=== PATIENT | female | born 1945 | race Caucasian/White ===

== ENCOUNTER 2016-07-20 11:42 | Outpatient (CLI) | payer MEDICARE ==
[2016-07-20 12:04] LABS: #Basophils 0.1 thou/uL (0.0-0.2); #Eosinphils 0.2 thou/uL (0.0-0.7); #Lymphocytes 1.6 thou/uL (1.20-3.40); #Monocytes 0.6 thou/uL (0.11-0.59); #Neutrophils 5.8 thou/uL (1.40-6.50); %Basophils 0.8 % (0.0-1.0); %Eosinophils 2.3 % (0.0-10.0); %Lymphocytes 19.3 % (21.0-51.0); %Monocytes 6.7 % (0.0-10.0); Hematocrit 30.6 % (36.0-47.0); Mean Platelet Volume 6.1 fL (7.4-10.4); Red Blood Cell (RBC) Count 3.76 mill/uL (4.20-5.40); White Blood Cell (WBC) Count 8.1 thou/uL (4.8-10.8)
[2016-07-20 14:21] LABS: ALT (SGPT) 17 U/L (0-55); AST (SGOT) 20 U/L (5-34); Alkaline Phosphatase 97 U/L (40-150); Bilirubin, Direct 0.1 mg/dL (0.1-0.3); Bilirubin, Total 0.3 mg/dL (0.2-1.2); LDL Cholesterol, Calculated 78 mg/dL; Protein, Total 5.9 g/dL (5.8-8.1)
== END 2016-07-20 11:43 | disposition home or self-care (01) ==
LOC: NAV LAB 11:42
PROVIDERS: ATTEND Dermatology
DX: L40.0 Psoriasis vulgaris (principal)
CPT/HCPCS: 36415; 80061; 80076; 85025

== ENCOUNTER 2016-08-17 10:45 | Outpatient (CLI) | payer MEDICARE ==
[2016-08-17 11:47] LABS: #Basophils 0.1 thou/uL (0.0-0.2); #Eosinphils 0.4 thou/uL (0.0-0.7); #Lymphocytes 1.5 thou/uL (1.20-3.40); #Monocytes 0.5 thou/uL (0.11-0.59); #Neutrophils 4.7 thou/uL (1.40-6.50); %Basophils 1.1 % (0.0-1.0); %Eosinophils 5.4 % (0.0-10.0); %Lymphocytes 21.3 % (21.0-51.0); %Monocytes 7.4 % (0.0-10.0); Hematocrit 29.8 % (36.0-47.0); Mean Platelet Volume 6.4 fL (7.4-10.4); Red Blood Cell (RBC) Count 3.59 mill/uL (4.20-5.40); White Blood Cell (WBC) Count 7.2 thou/uL (4.8-10.8)
[2016-08-17 11:50] LABS: ALT (SGPT) 15 U/L (0-55); AST (SGOT) 19 U/L (5-34); Alkaline Phosphatase 101 U/L (40-150); Bilirubin, Direct 0.2 mg/dL (0.1-0.3); Bilirubin, Total 0.5 mg/dL (0.2-1.2); LDL Cholesterol, Calculated 76 mg/dL; Protein, Total 5.8 g/dL (5.8-8.1)
== END 2016-08-17 10:46 | disposition home or self-care (01) ==
LOC: NAV LAB 10:45
PROVIDERS: ATTEND Dermatology
DX: L40.0 Psoriasis vulgaris (principal); Z79.899 Other long term (current) drug therapy
CPT/HCPCS: 36415; 80061; 80076; 85025

== ENCOUNTER 2016-09-13 08:36 | Outpatient (CLI) | payer MEDICARE ==
[2016-09-13 10:20] LABS: ALT (SGPT) 15 U/L (0-55); AST (SGOT) 19 U/L (5-34); Alkaline Phosphatase 99 U/L (40-150); Bilirubin, Direct 0.2 mg/dL (0.1-0.3); Bilirubin, Total 0.3 mg/dL (0.2-1.2); LDL Cholesterol, Calculated 81 mg/dL; Protein, Total 5.8 g/dL (5.8-8.1)
[2016-09-13 10:33] LABS: #Basophils 0.1 thou/uL (0.0-0.2); #Eosinphils 0.3 thou/uL (0.0-0.7); #Lymphocytes 0.9 thou/uL (1.20-3.40); #Monocytes 0.8 thou/uL (0.11-0.59); #Neutrophils 4.1 thou/uL (1.40-6.50); %Basophils 0.9 % (0.0-1.0); %Eosinophils 5.5 % (0.0-10.0); %Lymphocytes 14.2 % (21.0-51.0); %Monocytes 12.8 % (0.0-10.0); Hematocrit 30.9 % (36.0-47.0); Mean Platelet Volume 5.9 fL (7.4-10.4); Red Blood Cell (RBC) Count 3.68 mill/uL (4.20-5.40); White Blood Cell (WBC) Count 6.2 thou/uL (4.8-10.8)
== END 2016-09-13 08:37 | disposition home or self-care (01) ==
LOC: NAV LAB 08:36
PROVIDERS: ATTEND Dermatology
DX: L40.0 Psoriasis vulgaris (principal); Z79.899 Other long term (current) drug therapy
CPT/HCPCS: 36415; 80061; 80076; 85025

== ENCOUNTER 2016-11-08 07:52 | Outpatient (CLI) | payer MEDICARE ==
[2016-11-08 09:34] LABS: ALT (SGPT) 12 U/L (8-55); AST (SGOT) 17 U/L (5-34); Albumin 3.6 g/dL (3.4-4.8); Alkaline Phosphatase 93 U/L (40-150); Bilirubin, Direct 0.2 mg/dL (0.1-0.3); Bilirubin, Total 0.4 mg/dL (0.2-1.2); Cholesterol 125 mg/dL (< 200 Desired); HDL Cholesterol 42 mg/dL (>60 Neg Risk); LDL Cholesterol, Calculated 72 mg/dL; Protein, Total 5.9 g/dL (5.8-8.1); Triglycerides 53 mg/dL (Less than 150)
[2016-11-08 10:03] LABS: #Basophils 0.1 thou/uL (0.0-0.2); #Eosinphils 0.3 thou/uL (0.0-0.7); #Lymphocytes 1.5 thou/uL (1.20-3.40); #Monocytes 0.5 thou/uL (0.11-0.59); #Neutrophils 4.6 thou/uL (1.40-6.50); %Basophils 0.9 % (0.0-1.0); %Eosinophils 4.5 % (0.0-10.0); %Lymphocytes 20.9 % (21.0-51.0); %Monocytes 6.7 % (0.0-10.0); %Neutrophils 66.9 % (42.0-75.0); Hemoglobin 10.3 g/dL (12.0-16.0); Mean Corpuscular HGB CONC 29.7 g/dL (32.0-36.0); Mean Corpuscular Hemoglobin 24.6 pg (27.0-31.0); Mean Corpuscular Volume 82.8 fl (81.0-99.0); Platelet Count 281 thou/uL (130-400); RBC Distribution Width 17.1 % (11.5-14.5); Red Blood Cell (RBC) Count 4.17 mill/uL (4.20-5.40); White Blood Cell (WBC) Count 6.9 thou/uL (4.8-10.8)
[2016-11-08 10:04] LABS: Anisocytosis SLIGHT = 6-15 cells (100X) (0-5/hpf); Hypochromia SLIGHT = 6-15 cells (100X) (0-5/hpf); MDiff Complete? YES; PLT Morphology Comment Appears Adequate
[2016-11-08 10:36] LABS: Follow-up Chemistry Comp? YES; Follow-up Hematology Comp? YES; Follow-up Result - Chemistry REPORT FAXED; Follow-up Result - Hematology REPORT FAXED
== END 2016-11-08 07:53 | disposition home or self-care (01) ==
LOC: NAV LAB 07:52
PROVIDERS: ATTEND Dermatology
DX: L40.0 Psoriasis vulgaris (principal)
CPT/HCPCS: 80061; 80076; 85025

== ENCOUNTER 2017-02-01 15:48 | Outpatient (CLI) | payer MEDICARE ==
[2017-02-01 16:18] LABS: #Basophils 0.1 thou/uL (0.0-0.2); #Eosinphils 0.2 thou/uL (0.0-0.7); #Lymphocytes 1.2 thou/uL (1.20-3.40); #Monocytes 0.8 thou/uL (0.11-0.59); #Neutrophils 5.4 thou/uL (1.40-6.50); %Basophils 1.7 % (0.0-1.0); %Eosinophils 3.1 % (0.0-10.0); %Lymphocytes 15.9 % (21.0-51.0); %Monocytes 9.7 % (0.0-10.0); %Neutrophils 69.6 % (42.0-75.0); Hemoglobin 10.9 g/dL (12.0-16.0); Mean Corpuscular HGB CONC 30.4 g/dL (32.0-36.0); Mean Corpuscular Hemoglobin 26.6 pg (27.0-31.0); Mean Corpuscular Volume 87.3 fl (81.0-99.0); Platelet Count 225 thou/uL (130-400); RBC Distribution Width 16.3 % (11.5-14.5); Red Blood Cell (RBC) Count 4.12 mill/uL (4.20-5.40); White Blood Cell (WBC) Count 7.8 thou/uL (4.8-10.8)
[2017-02-01 16:55] LABS: ALT (SGPT) 13 U/L (8-55); AST (SGOT) 22 U/L (5-34); Albumin 3.6 g/dL (3.4-4.8); Alkaline Phosphatase 102 U/L (40-150); Anion Gap 17 mmol/L (10-20); BUN (Urea Nitrogen) 17 mg/dL (9.8-20.1); Bilirubin, Total 0.2 mg/dL (0.2-1.2); Calc. Creatinine Clearance 0 mL/min (70-130); Calcium 8.8 mg/dL (7.8-10.44); Carbon Dioxide 23 mmol/L (23-31); Cardiac Risk 2.9 (Less than 4.5); Chloride 111 mmol/L (98-107); Cholesterol 124 mg/dl (< 200 Desired); Estimated GFR-MDRD 68; Globulin 2.1 g/dL (2.4-3.5); Glucose 91 mg/dL (83-110); HDL Cholesterol 43 mg/dL (>60 Neg Risk); LDL Cholesterol, Calculated 69 mg/dL; Potassium 4.8 mmol/L (3.5-5.1); Protein, Total 5.7 g/dL (6.0-8.3); Sodium 146 mmol/L (136-145); Triglycerides 60 mg/dL (Less than 150)
[2017-02-01 22:24] LABS: Bilirubin Negative (Negative); Blood, Urine Negative (Negative); Clarity Clear (Clear); Glucose, Urine (Dipstick) Negative (Negative); Leukocyte Large (Negative); Nitrite Negative (Negative); Protein, Urine (Dipstick) Negative (Neg-Trace); Specific Gravity, Urine 1.025 (1.005-1.030); Urobilinogen 0.2 mg/dL (0.2-1.0)
[2017-02-01 22:50] LABS: Bacteria/HPF Rare-Few HPF (None Seen); RBC/HPF 0-3 HPF (0-3)
== END 2017-02-01 15:49 | disposition home or self-care (01) ==
LOC: NAVSJIPCSP 15:48 → NAV LAB 15:49
PROVIDERS: ATTEND Internal Medicine
DX: E07.89 Other specified disorders of thyroid (principal); I10 Essential (primary) hypertension; L30.9 Dermatitis, unspecified
CPT/HCPCS: 36415; 80053; 80061; 81003; 81015; 84443; 85025

== ENCOUNTER 2018-01-02 09:37 | Outpatient (CLI) | payer MEDICARE ==
--- NOTE | 2018-01-02 12:07 | ULT ---
LEFT LOWER EXTREMITY VENOUS ULTRASOUND WITH DOPPLER: HISTORY: Left lower extremity pain and swelling. History of left leg DVT. COMPARISON: None. TECHNIQUE: Gerardo scale, color flow, Doppler imaging, with spectral waveform analysis of the left lower extremity venous system. FINDINGS: There is compressibility, presence of flow, and augmentation of the common femoral vein, femoral vein , and popliteal vein. There is flow in the greater saphenous vein, profunda vein, posterior tibial v ein, and anterior tibial vein. There is some reflux in the greater saphenous vein. IMPRESSION: No evidence of thrombus of the left lower extremity deep venous system. POS: PPP
== END 2018-01-02 09:38 | disposition home or self-care (01) ==
LOC: NAV ULT 09:37
PROVIDERS: ATTEND Internal Medicine
DX: I82.90 Acute embolism and thrombosis of unspecified vein (principal); M79.606 Pain in leg, unspecified; Z86.718 Personal history of other venous thrombosis and embolism